=== PATIENT | male | born 1985 | race African-American/Black ===

== ENCOUNTER 2020-10-17 21:08 | Emergency (ER) | payer OTHER, MEDICAID ==
[~2020-10-17] VITALS: Ht 172.7 cm; Wt 84.0 kg
[2020-10-17] MEDS ORDERED: AMOX-424 MT (22:10)
[2020-10-17] MEDS ORDERED: AMOXICILLIN/POTASSIUM CLAVULANATE 500/125MG TAB PO NR (22:15)
[2020-10-17 22:44] VITALS: BP 165/83
== END 2020-10-18 00:08 | disposition home or self-care (01) ==
LOC: ER 22:29
DX: S80.861A Insect bite (nonvenomous), right lower leg, initial encounter (principal); R03.0 Elevated blood-pressure reading, without diagnosis of hypertension; W57.XXXA Bitten or stung by nonvenomous insect and other nonvenomous arthropods, initial encounter; Y93.89 Activity, other specified; Y92.89 Other specified places as the place of occurrence of the external cause
CPT/HCPCS: 73590; 99283

== ENCOUNTER 2021-05-17 11:36 | Emergency (ER) | payer MEDICAID, OTHER ==
[~2021-05-17] VITALS: Ht 175.3 cm; Wt 73.0 kg
[~2021-05-17 11:36] MED LIST: AMOX-424 MT
[2021-05-17 11:56] VITALS: BP 124/87
[2021-05-17] MEDS ORDERED: LIDOCAINE HCL/EPINEPHRINE 1%-EPI 1:100,000 20 ML VIAL INFIL ONE (12:00)
[2021-05-17] MEDS ORDERED: BACITRACIN ZINC OINT UDPKT TOP ONE (12:00)
[2021-05-17] MEDS ORDERED: SULF1TAB48 MT (12:03)
[2021-05-17] MEDS ORDERED: LIDOCAINE HCL/EPINEPHRINE 1%-EPI 1:100,000 30 ML VIAL INFIL ONE (12:15)
[2021-05-17] MEDS ORDERED: LIDOCAINE HCL/EPINEPHRINE 1%-EPI 1:100,000 10 ML VIAL INFIL NR (13:24)
== END 2021-05-17 14:30 | disposition home or self-care (01) ==
LOC: ER 11:36
DX: L02.413 Cutaneous abscess of right upper limb (principal)
CPT/HCPCS: 10060; 99283; J3490